=== PATIENT | male | born 1950 | race Two or more races ===

== ENCOUNTER 2017-04-06 10:08 | Emergency (ER) | payer SELFPAY ==
[~2017-04-06] VITALS: Ht 190.5 cm; Wt 85.0 kg
[2017-04-06] MEDS ORDERED: LORazepam 2 MG/ML, 1ML ONE (10:20)
[2017-04-06] MEDS ORDERED: LORazepam 2 MG/ML, 1ML IVPush ONE (10:30)
[2017-04-06 13:01] VITALS: BP 112/65
== END 2017-04-06 13:07 | disposition home or self-care (01) ==
LOC: ED 13:01
DX: F15.129 Other stimulant abuse with intoxication, unspecified (principal)
CPT/HCPCS: 93005; 96374; 99284; J2060

== ENCOUNTER 2017-06-11 06:29 | Emergency (ER) | payer SELFPAY ==
[~2017-06-11] VITALS: Ht 185.4 cm; Wt 79.0 kg
[2017-06-11 06:32] VITALS: BP 131/77
== END 2017-06-11 08:23 | disposition home or self-care (01) ==
LOC: ED 06:34
DX: S39.012A Strain of muscle, fascia and tendon of lower back, initial encounter (principal); S09.8XXA Other specified injuries of head, initial encounter; S63.501A Unspecified sprain of right wrist, initial encounter; X31.XXXA Exposure to excessive natural cold, initial encounter; Y04.2XXA Assault by strike against or bumped into by another person, initial encounter; Y93.89 Activity, other specified; Y92.488 Other paved roadways as the place of occurrence of the external cause; Y99.8 Other external cause status
CPT/HCPCS: 70450; 72110; 99284